=== PATIENT | male | born 1995 | race Caucasian/White ===

== ENCOUNTER 2022-06-29 16:26 | Emergency (ER) | payer MEDICAID, OTHER ==
[~2022-06-29] VITALS: Ht 180.3 cm; Wt 77.0 kg
[2022-06-29] MEDS ORDERED: ACETAMINOPHEN 325MG TABLET PO ONE (17:00)
[2022-06-29] MEDS ORDERED: IBUP-2029 MT (20:17)
[2022-06-29 20:54] VITALS: BP 122/81
== END 2022-06-29 20:56 | disposition home or self-care (01) ==
LOC: ER 16:26
DX: S43.492A Other sprain of left shoulder joint, initial encounter (principal); V49.49XA Driver injured in collision with other motor vehicles in traffic accident, initial encounter; Y93.89 Activity, other specified; Y92.488 Other paved roadways as the place of occurrence of the external cause
CPT/HCPCS: 73030; 99283